=== PATIENT | male | born 1945 | race Caucasian/White ===

== ENCOUNTER 2023-12-27 09:18 | Outpatient (CLI) | payer MEDICARE ==
[2023-12-27 09:50] LABS: BASOPHILS # (AUTO) 0.1 X10'3 (0-0.2); BASOPHILS % (AUTO) 0.8 % (0-1); EOSINOPHILS # (AUTO) 0.3 X10'3 (0-0.9); EOSINOPHILS % (AUTO) 3.9 % (0-6); HEMATOCRIT 38.6 % (42.0-52.0); HEMOGLOBIN 12.8 g/dl (14.0-17.9); LYMPHOCYTES # (AUTO) 1.7 X10'3 (1.1-4.8); LYMPHOCYTES % (AUTO) 22.8 % (21-51); MEAN CORPUSCULAR HEMOGLOBIN 30.9 PG (27.0-31.0); MEAN CORPUSCULAR HGB CONC 33.1 g/dL (33.0-36.5); MEAN CORPUSCULAR VOLUME 93.2 FL (78-98); MEAN PLATELET VOLUME 8.8 FL (7.4-10.4); MONOCYTES # (AUTO) 0.8 X10'3 (0-0.9); MONOCYTES % (AUTO) 10.2 % (2-12); NEUTROPHILS # (AUTO) 4.7 X10'3 (1.8-7.7); NEUTROPHILS % (AUTO) 62.3 % (42-75); PLATELET COUNT 194 X10'3 (140-440); RED BLOOD COUNT 4.14 X10'6 (4.70-6.10); RED CELL DISTRIBUTION WIDTH 13.1 % (11.5-14.5); WHITE BLOOD COUNT 7.6 X10'3 (4.5-11.0)
[2023-12-27 10:01] LABS: ALBUMIN 3.4 G/DL (3.4-5.0); ANION GAP 11 (8-16); BLOOD UREA NITROGEN 44 MG/DL (7-18); BUN/CREATININE RATIO 27.2 (10.0-20.0); CALCIUM 9.3 MG/DL (8.5-10.1); CHLORIDE 105 MMOL/L (99-107); CHOL/HDL RATIO 3.2 (0.00-4.99); CHOLESTEROL 145 MG/DL (0-200); CREATININE 1.62 MG/DL (0.60-1.10); GLUCOSE 115 MG/DL (70-104); HDL CHOLESTEROL 46 MG/DL (35-60); LDL CHOLESTEROL 69 MG/DL (50-100); POTASSIUM 4.3 MMOL/L (3.5-5.1); SODIUM 139 MMOL/L (135-145); TOTAL CARBON DIOXIDE 23.5 MMOL/L (24-32); TRIGLYCERIDES 182 MG/DL (20-135); eGFR 41 ML/MIN
[2023-12-27 10:07] LABS: APTT 25 SECONDS (22-32); PROTHROMBIN TIME 10.3 SECONDS (9.0-12.0)
== END 2023-12-27 23:59 | disposition home or self-care (01) ==
LOC: LAB 09:18
PROVIDERS: ATTEND Internal Medicine Interventional Cardiology
DX: I11.9 Hypertensive heart disease without heart failure (principal); E78.5 Hyperlipidemia, unspecified; I48.0 Paroxysmal atrial fibrillation
CPT/HCPCS: 36415; 80048; 80061; 85025; 85610; 85730

== ENCOUNTER 2024-01-01 11:17 | Day surgery (SDC) | payer OTHER, MEDICARE ==
[~2024-01-01] VITALS: Ht 177.8 cm; Wt 105.4 kg
[2024-01-01] VITALS (8 sets, daily range): BP systolic 154–182; BP diastolic 48–77; PULSE 53–68; RESP 14–23; TEMP 97.8; O2SAT 95–97
[2024-01-01] MEDS ORDERED: DILT120T3 PO (11:51)
[2024-01-01] MEDS ORDERED: CARV-50 PO (11:51)
[2024-01-01] MEDS ORDERED: ROSU20TA98 PO (11:51)
[2024-01-01] MEDS ORDERED: HYDR100T12 PO (11:51)
[2024-01-01] MEDS ORDERED: HYDR12.55 PO (11:51)
[2024-01-01] MEDS ORDERED: IRBE300T26 PO (11:51)
[2024-01-01] MEDS ORDERED: heparin 1,000unit/ml 10ml vial 10 ML ONE (12:52)
[2024-01-01] MEDS ORDERED: LIDOcaine 1% (10mg/ml) 2ml vial ONE (12:52)
[2024-01-01] MEDS ORDERED: fentaNYL/PF 50MCG/1 ML 2ML syringe ONE (12:52)
[2024-01-01] MEDS ORDERED: iohexol 350MG/ML 100ml bottle IV ONE (12:52)
[2024-01-01] MEDS ORDERED: midazolam 1 mg/ML 2ml injection ONE (12:52)
[2024-01-01] MEDS ORDERED: verapamil 2.5 mg/ml inj IV ONE (12:52)
[2024-01-01] MEDS ORDERED: nitroGLYCERIN 500mcg/5mL D5W 5 ML IV ONE (12:53)
[2024-01-01] MEDS: normal saline 1,000 ML IV SCH (13:20)
[2024-01-01] MEDS: LORazepam 0.5 MG tablet PO PRN (13:20)
[2024-01-01] MEDS: diphenhydrAMINE 25mg capsule PO PRN (13:21)
[2024-01-01] MEDS ORDERED: LIDOcaine 1% 30ml preserv. free vial ONE (14:36)
[2024-01-01] MEDS ORDERED: iohexol 350 MG/ML 50ML vial IV ONE (14:51)
[2024-01-01 15:02] LABS: ISTAT HGB ART 11.6 g/dl (14.0-17.9); ISTAT Hct ART 34 %PCV (42-52); ISTAT O2 SATURATION ARTERIAL 95 % (95-98); ISTAT SOURCE ART
[2024-01-01] MEDS ORDERED: HYDROcodone/acetaminophen 10/325mg tab PO PRN (16:10)
[2024-01-01] MEDS ORDERED: HYDROcodone/acetaminophen 5mg/325mg tablet PO PRN (16:10)
== END 2024-01-01 17:00 | disposition home or self-care (01) ==
LOC: SSTAY O 11:17
PROVIDERS: ATTEND Student in an Organized Health Care Education/Training Program
DX: I35.0 Nonrheumatic aortic (valve) stenosis (principal); I25.10 Atherosclerotic heart disease of native coronary artery without angina pectoris; I45.2 Bifascicular block; R94.31 Abnormal electrocardiogram [ECG] [EKG]; I70.1 Atherosclerosis of renal artery; I12.9 Hypertensive chronic kidney disease with stage 1 through stage 4 chronic kidney disease, or unspecified chronic kidney disease; N18.30 Chronic kidney disease, stage 3 unspecified; E78.00 Pure hypercholesterolemia, unspecified; I48.0 Paroxysmal atrial fibrillation; Z79.899 Other long term (current) drug therapy
CPT/HCPCS: 36252; 82803; 85014; 93005; 93456; 99152; J1644; J2250; J3010; J3490; J7030; Q0163; Q9967; 99153; A6258; C1751; C1760; C1769; C1894; J2003

== ENCOUNTER 2024-01-23 09:32 | Outpatient (CLI) | payer OTHER, MEDICARE ==
[~2024-01-23 09:32] MED LIST: CARV-50 PO; DILT120T3 PO; HYDR100T12 PO; HYDR12.55 PO; IODIXANOL 320 MG/ML INFUS..BTL 100ML IV ONE; IRBE300T26 PO; ROSU20TA98 PO
[2024-01-23 09:58] LABS: BASOPHILS % (AUTO) 0.6 % (0-1); EOSINOPHILS # (AUTO) 0.3 X10'3 (0-0.9); EOSINOPHILS % (AUTO) 3.7 % (0-6); HEMATOCRIT 37.8 % (42.0-52.0); HEMOGLOBIN 12.9 g/dl (14.0-17.9); LYMPHOCYTES # (AUTO) 1.4 X10'3 (1.1-4.8); LYMPHOCYTES % (AUTO) 18.9 % (21-51); MEAN CORPUSCULAR HEMOGLOBIN 31.9 PG (27.0-31.0); MEAN CORPUSCULAR VOLUME 93.7 FL (78-98); MEAN PLATELET VOLUME 8.4 FL (7.4-10.4); MONOCYTES # (AUTO) 0.8 X10'3 (0-0.9); MONOCYTES % (AUTO) 10.3 % (2-12); NEUTROPHILS % (AUTO) 66.5 % (42-75); PLATELET COUNT 192 X10'3 (140-440); RED BLOOD COUNT 4.03 X10'6 (4.70-6.10); RED CELL DISTRIBUTION WIDTH 13.4 % (11.5-14.5); WHITE BLOOD COUNT 7.5 X10'3 (4.5-11.0)
[2024-01-23 10:11] LABS: APTT 26 SECONDS (22-32); PROTHROMBIN TIME 10.6 SECONDS (9.0-12.0)
[2024-01-23 10:20] LABS: ALANINE AMINOTRANSFERASE 46 U/L (12-78); ALBUMIN 3.3 G/DL (3.4-5.0); ALBUMIN/GLOBULIN RATIO 0.8 (1.1-1.5); ALKALINE PHOSPHATASE 79 IU/L (46-116); ANION GAP 9 (8-16); ASPARTATE AMINO TRANSFERASE 27 U/L (10-37); BILIRUBIN,TOTAL 0.9 MG/DL (0.1-1.0); BLOOD UREA NITROGEN 37 MG/DL (7-18); BUN/CREATININE RATIO 22.6 (10.0-20.0); CALCIUM 9.4 MG/DL (8.5-10.1); CHLORIDE 105 MMOL/L (99-107); CREATININE 1.64 MG/DL (0.60-1.10); GLUCOSE 113 MG/DL (70-104); POTASSIUM 4.4 MMOL/L (3.5-5.1); PRO BRAIN NATRIURETIC PEPTIDE 525 PG/ML (0-450); SODIUM 138 MMOL/L (135-145); TOTAL CARBON DIOXIDE 24.1 MMOL/L (24-32); TOTAL PROTEIN 7.5 G/DL (6.4-8.2); eGFR 41 ML/MIN
[2024-01-23] MEDS ORDERED: IODIXANOL 320 MG/ML INFUS..BTL 100ML IV ONE (12:04)
== END 2024-01-23 23:59 | disposition home or self-care (01) ==
LOC: RAD 09:32
PROVIDERS: ATTEND Internal Medicine Cardiovascular Disease
DX: I65.23 Occlusion and stenosis of bilateral carotid arteries (principal); I35.0 Nonrheumatic aortic (valve) stenosis; R06.02 Shortness of breath; I51.7 Cardiomegaly; N62 Hypertrophy of breast; M19.012 Primary osteoarthritis, left shoulder; M19.011 Primary osteoarthritis, right shoulder; K76.89 Other specified diseases of liver
CPT/HCPCS: 36415; 71046; 71275; 74174; 75572; 80053; 83880; 85025; 85610; 85730; 93880; Q9967

== ENCOUNTER 2024-04-24 05:25 | Inpatient (IN) | payer OTHER, MEDICARE ==
[2024-04-21 11:23] LABS: BASOPHILS % (AUTO) 0.7 % (0-1); EOSINOPHILS # (AUTO) 0.2 X10'3 (0-0.9); EOSINOPHILS % (AUTO) 3.8 % (0-6); LYMPHOCYTES # (AUTO) 1.3 X10'3 (1.1-4.8); LYMPHOCYTES % (AUTO) 20.8 % (21-51); MEAN CORPUSCULAR HEMOGLOBIN 31.1 PG (27.0-31.0); MEAN CORPUSCULAR HGB CONC 33.7 g/dL (33.0-36.5); MEAN CORPUSCULAR VOLUME 92.3 FL (78-98); MEAN PLATELET VOLUME 8.5 FL (7.4-10.4); MONOCYTES # (AUTO) 0.7 X10'3 (0-0.9); MONOCYTES % (AUTO) 10.3 % (2-12); NEUTROPHILS # (AUTO) 4.1 X10'3 (1.8-7.7); NEUTROPHILS % (AUTO) 64.4 % (42-75); PRE OP HEMATOCRIT 36.4 % (42.0-52.0); PRE OP HEMOGLOBIN 12.3 g/dL (14.0-17.9); PRE OP PLATELET COUNT 187 X10'3 (140-440); PRE OP WHITE BLOOD COUNT 6.4 10'3 (4.8-10.8); RED BLOOD COUNT 3.95 X10'6 (4.70-6.10); RED CELL DISTRIBUTION WIDTH 13.3 % (11.5-14.5)
[2024-04-21 11:27] LABS: BILIRUBIN,URINE NEGATIVE (Neg); CLARITY,URINE CLEAR (Clear); COLOR,URINE YELLOW (Yellow); GLUCOSE, URINE NEGATIVE (Neg); KETONES,URINE NEGATIVE (Neg); LEUKOCYTE ESTERASE ,URINE NEGATIVE (Neg); NITRITES, URINE NEGATIVE (Neg); OCCULT BLOOD,URINE NEGATIVE (Neg); PROTEIN,URINE 30 mg/dl (Neg); UROBILINOGEN,URINE 0.2 E.U/dL (0.2-1.0)
[2024-04-21 11:35] LABS: PRE OP PROTIME 10.6 SECONDS (9.0-12.0)
[2024-04-21 11:43] LABS: ALBUMIN 3.2 G/DL (3.4-5.0); ALBUMIN/GLOBULIN RATIO 0.8 (1.1-1.5); ALKALINE PHOSPHATASE 89 IU/L (46-116); BLOOD UREA NITROGEN 28 MG/DL (7-18); BUN/CREATININE RATIO 17.6 (10.0-20.0); CALCIUM 9.1 MG/DL (8.5-10.1); CHLORIDE 106 MMOL/L (99-107); CREATININE 1.59 MG/DL (0.60-1.10); PRE OP ALT 45 U/L (30-65); PRE OP ANION GAP 8 (8-16); PRE OP AST 31 U/L (10-37); PRE OP BILIRUB, TOTAL 0.6 MG/DL (0.0-1.0); PRE OP GLUCOSE 111 MG/DL (70-104); PRE OP POTASSIUM 4.3 MMOL/L (3.4-5.1); PRE OP SODIUM 140 MMOL/L (135-145); PRO BRAIN NATRIURETIC PEPTIDE 618 PG/ML (0-450); TOTAL PROTEIN 7.2 G/DL (6.4-8.2); eGFR 42 ML/MIN
[2024-04-21 11:51] LABS: UA COLLECTION TYPE NON-SPECIFIED; WBC,URINE 0-4 /HPF (0-4)
[2024-04-21 11:52] LABS: BACTERIA,URINE FEW /HPF (Neg); SQUAMOUS EPITHELIAL CELL,UR FEW /LPF (FEW)
[2024-04-21 11:54] LABS: RBC,URINE NONE SEEN /HPF (0-2)
[2024-04-24] VITALS (30 sets, daily range): BP systolic 123–184; BP diastolic 39–68; PULSE 50–80; RESP 12–20; TEMP 97.6–98.1; O2SAT 94–99
[~2024-04-24] VITALS: Ht 172.7 cm; Wt 107.0 kg
[~2024-04-24 05:25] MED LIST changes: -IODIXANOL 320 MG/ML INFUS..BTL 100ML IV ONE; -IRBE300T26 PO; +IRBE300T43 PO
[2024-04-24] MEDS ORDERED: phenylephrine inj 50 MG in normal saline 250ml IV solN IV SCH (05:30)
[2024-04-24] MEDS: ceFAZolin 2gm in dextrose, iso 50 ML IV ONE (05:30)
[2024-04-24] MEDS ORDERED: nitroPRUSSIDE (NIPRIDE) (200MCG/ML) 100ML Drip IV SCH (05:30)
[2024-04-24] MEDS ORDERED: ondansetron/PF 4mg/2ml inj IV PRN ×2 (05:30→08:35)
[2024-04-24] MEDS: aspirin 325mg tablet PO ONE (05:58)
[2024-04-24] MEDS: famotidine 20mg tablet PO ONE (05:58)
[2024-04-24] MEDS: ringers solution, lacted 1,000 ML IV SCH (05:58)
[2024-04-24] MEDS: VANCOMYCIN/H2O 1.5g/300mL PB 300 ML IV ONE (05:59)
[2024-04-24] MEDS ORDERED: iohexol 350MG/ML 100ml bottle IV ONE (06:40)
[2024-04-24] MEDS ORDERED: heparin 1,000 UNITS/NS 500ml 1,500 ML ONE (06:41)
[2024-04-24] MEDS ORDERED: protamine sulfate 10mg/ml inj. ONE (06:42)
[2024-04-24] MEDS ORDERED: LIDOcaine 1% 30ml preserv. free vial ONE (06:52)
[2024-04-24] MEDS ORDERED: hydrALAZINE 20mg/ml inj. ONE (06:52)
[2024-04-24] MEDS ORDERED: fentaNYL/PF 50MCG/1 ML 2ML syringe ONE (07:06)
[2024-04-24] MEDS ORDERED: midazolam 1 mg/ML 2ml injection ONE (07:06)
[2024-04-24] MEDS ORDERED: propofol inj 20 ML IV ONE (07:18)
[2024-04-24] MEDS ORDERED: LIDOcaine 1%/PF 5ML 10 MG/ML VIAL ONE (07:18)
[2024-04-24] MEDS ORDERED: heparin 1,000unit/ml 10ml vial 10 ML ONE (07:23)
[2024-04-24] MEDS: hydrALAZINE 25 MG tablet PO SCH (08:00)
[2024-04-24] MEDS ORDERED: labetalol 20mg/4ml (5mg/ml) syringe IV PRN (08:35)
[2024-04-24] MEDS ORDERED: pantoprazole 40mg Tablet.DR PO PRN (08:35)
[2024-04-24] MEDS ORDERED: acetaminophen 325mg tablet PO PRN (08:35)
[2024-04-24] MEDS ORDERED: potassium CL 10mEq/100ml bag 100 ML IV PRN (08:35)
[2024-04-24] MEDS ORDERED: potassium Cl 20 mEq SR tablet PO PRN (08:35)
[2024-04-24] MEDS ORDERED: potassium Cl 20mEq/100mL bag 100 ML IV PRN (08:35)
[2024-04-24] MEDS ORDERED: magnesium sulf-water 2g/50mL 50 ML IV PRN (08:35)
[2024-04-24] MEDS ORDERED: proCHLORperazine 10 MG/2 ml inj IV PRN (08:35)
[2024-04-24] MEDS ORDERED: docusate sod 100mg capsule PO PRN (08:35)
[2024-04-24] MEDS ORDERED: potassium Cl 40MEQ/1/2NS 520ml 520 ML IV PRN (08:35)
[2024-04-24] MEDS ORDERED: potassium Cl 40MEQ/270ML bag 250 ML IV PRN (08:35)
[2024-04-24] MEDS ORDERED: normal saline 1000ml 1,000 ML IV SCH (08:35)
[2024-04-24] MEDS ORDERED: magnesium sulf-water 4G/100mL 100 ML IV PRN (08:35)
[2024-04-24] MEDS: hydrALAZINE 20mg/ml inj. IV PRN (09:59)
[2024-04-24] MEDS: HYDROcodone/acetaminophen 5mg/325mg tablet PO PRN (10:04)
[2024-04-24] MEDS: carVEDilol 12.5mg tablet PO SCH (12:59)
[2024-04-24] MEDS: atorvastatin 20mg tablet PO SCH (12:59)
[2024-04-24] MEDS: HYDROchlorothiazide 12.5mg capsule PO SCH (12:59)
[2024-04-24] MEDS: DOCUMENT DATE & TIME OF BETA-BLOCKER PO ONE (13:00)
[2024-04-24] MEDS: ceFAZolin 1GM/D5W- ADD-VANTAGE 50 ML IV SCH (16:01)
[2024-04-24] MEDS: sod chloride 0.9% 10ml flush syringe IV SCH (17:05)
[2024-04-24] MEDS: vancomycin inj 1,000 MG in normal saline 250ml IV soln 250 ML IV SCH (20:36)
[2024-04-24] MEDS: diltiazem 30mg tablet PO SCH (20:37)
[2024-04-24] MEDS: ALPRAZolam 0.25mg tablet PO PRN (20:37)
[2024-04-24] MEDS: diphenhydrAMINE 25mg capsule PO PRN (20:37)
[2024-04-24] MEDS: losartan 50mg tablet PO SCH (20:37)
[2024-04-24] MEDS: hydrALAZINE 20mg/ml inj. IV ONE (22:33)
[2024-04-25 02:00] VITALS: BP 154/44; PULSE 56; RESP 19; TEMP 98; O2SAT 98
[2024-04-25 06:00] VITALS: BP 178/57; PULSE 64; RESP 16; TEMP 98.9; O2SAT 97
[2024-04-25 06:08] LABS: BASOPHILS % (AUTO) 0.6 % (0-1); EOSINOPHILS # (AUTO) 0.4 X10'3 (0-0.9); EOSINOPHILS % (AUTO) 4.2 % (0-6); HEMATOCRIT 32.6 % (42.0-52.0); HEMOGLOBIN 11.2 g/dl (14.0-17.9); LYMPHOCYTES # (AUTO) 1.2 X10'3 (1.1-4.8); LYMPHOCYTES % (AUTO) 13.8 % (21-51); MEAN CORPUSCULAR HEMOGLOBIN 31.6 PG (27.0-31.0); MEAN CORPUSCULAR HGB CONC 34.4 g/dL (33.0-36.5); MEAN PLATELET VOLUME 8.9 FL (7.4-10.4); MONOCYTES # (AUTO) 0.9 X10'3 (0-0.9); MONOCYTES % (AUTO) 10.1 % (2-12); NEUTROPHILS # (AUTO) 6.3 X10'3 (1.8-7.7); NEUTROPHILS % (AUTO) 71.3 % (42-75); PLATELET COUNT 120 X10'3 (140-440); RED BLOOD COUNT 3.54 X10'6 (4.70-6.10); RED CELL DISTRIBUTION WIDTH 13.3 % (11.5-14.5); WHITE BLOOD COUNT 8.9 X10'3 (4.5-11.0)
[2024-04-25 06:25] LABS: ALANINE AMINOTRANSFERASE 31 U/L (12-78); ALBUMIN 2.6 G/DL (3.4-5.0); ALBUMIN/GLOBULIN RATIO 0.8 (1.1-1.5); ALKALINE PHOSPHATASE 68 IU/L (46-116); ANION GAP 5 (8-16); ASPARTATE AMINO TRANSFERASE 28 U/L (10-37); BILIRUBIN,TOTAL 0.7 MG/DL (0.1-1.0); BLOOD UREA NITROGEN 23 MG/DL (7-18); BUN/CREATININE RATIO 16.8 (10.0-20.0); CALCIUM 8.2 MG/DL (8.5-10.1); CHLORIDE 108 MMOL/L (99-107); CREATININE 1.37 MG/DL (0.60-1.10); GLUCOSE 98 MG/DL (70-104); MAGNESIUM 2.2 MG/DL (1.5-2.4); PRO BRAIN NATRIURETIC PEPTIDE 1918 PG/ML (0-450); SODIUM 140 MMOL/L (135-145); TOTAL CARBON DIOXIDE 26.7 MMOL/L (24-32); eCRCL 42 ML/MIN; eGFR 50 ML/MIN
[2024-04-25] MEDS: aspirin 81mg tab.chew PO SCH (07:34)
[2024-04-25 08:00] VITALS: RESP 16; O2SAT 97
[2024-04-25 11:00] VITALS: BP 166/41; PULSE 60; RESP 20; TEMP 97.9; O2SAT 97
[2024-04-25 13:00] VITALS: BP 157/53; PULSE 60; RESP 20; TEMP 97.9; O2SAT 97
[2024-04-25] MEDS ORDERED: HYDR100T12 PO (14:05)
[2024-04-25] MEDS ORDERED: ASPI81TA53 PO (14:05)
[2024-04-25] MEDS ORDERED: HYDR12.55 PO (14:05)
== END 2024-04-25 14:55 | disposition home or self-care (01) | DRG 266 ==
LOC: PAS IN 05:25 → PCU 3S 18:45 → S STAY 04-25 13:04
PROVIDERS: ADMIT Internal Medicine Cardiovascular Disease; ATTEND Internal Medicine Cardiovascular Disease
PROC: B41D1ZZ Fluoroscopy of Aorta and Bilateral Lower Extremity Arteries using Low Osmolar Contrast (ICD-10-PCS; 2024-04-24)
PROC: 03HY32Z Insertion of Monitoring Device into Upper Artery, Percutaneous Approach (ICD-10-PCS; 2024-04-24)
PROC: 02RF38Z Replacement of Aortic Valve with Zooplastic Tissue, Percutaneous Approach (ICD-10-PCS; principal; 2024-04-24 06:52)
DX: I35.0 Nonrheumatic aortic (valve) stenosis (principal); Z00.6 Encounter for examination for normal comparison and control in clinical research program; I50.33 Acute on chronic diastolic (congestive) heart failure; I44.2 Atrioventricular block, complete; I48.91 Unspecified atrial fibrillation; I11.0 Hypertensive heart disease with heart failure; E78.5 Hyperlipidemia, unspecified; Z79.899 Other long term (current) drug therapy
CPT/HCPCS: 33361; 36415; 71045; 76937; 80053; 81001; 82948; 83735; 83880; 85025; 85347; 85610; 85730; 86885; 86900; 86901; 86920; 93005; 93308; A4618; A6258; A6449; C1756; C1760; C1769; C1894; G0378; J0360; J0690; J1644; J2003; J2250; J2371; J2704; J2720; J3010; J3370; J3372; J3490; J7040; J7050; J7120; Q0163; Q9967